=== PATIENT | male | born 1990 | race Caucasian/White ===

== ENCOUNTER 2016-08-25 13:38 | Emergency (ER) | END 2016-08-25 18:50 | disposition home or self-care (01) | CPT/HCPCS: 36415; 74176; 80053; 81003; 83690; 85025; 99284; A9270 ==

== ENCOUNTER 2016-11-24 15:10 | Emergency (ER) | payer MEDICAID ==
[2016-11-24 15:19] VITALS: BP 143/101
[2016-11-24 15:44] LABS: BILIRUBIN,URINE NEGATIVE (NEGATIVE); PH,URINE 5.5 PH (5.0-7.5)
[2016-11-24 15:46] LABS: UA w/ MICROSCOPIC CHARGE YES
[2016-11-24 15:54] LABS: UR CULTURE IF IND NOT INDICATED; WBC,URINE 0-3 /HPF (0-3)
--- NOTE | 2016-11-24 16:21 | ED Physician Documentation ---
PD HPI MALE - Stated complaint Stated Complaint: MALE - Chief complaint Chief Complaint: General - History obtained from History obtained from: Patient - History of Present Illness Timing - onset: How many days ago (5-6) Timing - duration: Days Timing - details: Gradual onset, Still present Associated symptoms: Testiclar pain (pain not as much in testicles but in posterior fourchette near base of scrotum. With tenderness and feelling of having to push some when urinating. Seen in office with normal UA and exam findings of tender prostate but also tender around the soft tissue. Concern for perirectal abscess and sent to ED for further evaluation.). No: Dysuria, Urinary frequency, Genital sore / lesion, Scrotal swelling PD HPI MALE CONTRIB FACTORS: Sexually active. No: Exposed to STD Similar symptoms before: Has not had sx before Recently seen: Clinic (today and referred to ED) Review of Systems Constitutional: denies: Fever, Chills, Myalgias GI: denies: Abdominal Pain, Vomiting, Diarrhea : denies: Dysuria, Frequency, Hematuria, Discharge Skin: denies: Rash, Lesions PD PAST MEDICAL HISTORY - Past Medical History Musculoskeletal: Chronic back pain, Other - Past Surgical History Past Surgical History: No - Present Medications Home Medications: Ambulatory Orders Medication Instructions Recorded Confirmed Amoxicillin/Potassium Clav 1 each PO Q12H #20 tablet 08/25/16 [Augmentin 875-125 Tablet] Metformin HCl 850 mg PO DAILY #15 tablet 08/25/16 Doxycycline Hyclate 100 mg PO BID #14 tablet 11/24/16 Hydrocodone/Acetaminophen [[place] 1 each PO Q6H PRN #20 tablet 11/24/16 5-325 Tablet] Naproxen [Naprosyn] 500 mg PO BID #20 tablet 11/24/16 - Allergies Allergies/Adverse Reactions: Allergies Allergy/AdvReac Type Severity Reaction Status Date / Time No Known Drug Allergies Allergy Verified 08/25/16 14:08 - Social History Does the pt smoke?: Yes Does the pt drink ETOH?: No Does the pt have substance abuse?: No - Immunizations Immunizations are current?: No Immunizations: TDAP >10years/unknown PD ED PE NORMAL - Vitals Vital signs reviewed: Yes - General General: Alert and oriented X 3, Well developed/nourished - Neck Neck: Supple, no meningeal sign, No adenopathy - Cardiac Cardiac: RRR, No murmur - Respiratory Respiratory: Clear bilaterally - Abdomen Abdomen: Soft, Non tender - Male Male : Other (normal genitalia. Testes not tender. Posterior to base of scrotum is some tender without firmness nor swelling. No redness. Bedside U/S showed no apparent abscess. Some look at prostate appeared symmetric at 2 cm though just skin probe. Testes with normal appearance and good blood flow. ) - Rectal Rectal: Deferred - Back Back: No CVA TTP - Derm Derm: Normal color, Warm and dry Results - Vitals Vitals: Vital Signs - 24 hr 11/24/16 15:16 Temperature 36.4 C L Heart Rate 101 H Respiratory 14 Rate Blood Pressure 143/101 H O2 Saturation 98 Oxygen O2 Source Room air - Labs Labs: Laboratory Tests 11/24/16 15:29 Urine Color YELLOW Urine Clarity HAZY Urine pH 5.5 Ur Specific [place] 1.020 Urine Protein NEGATIVE Urine Glucose (UA) >=1000 H Urine Ketones TRACE Urine Occult Blood NEGATIVE Urine Nitrite NEGATIVE Urine Bilirubin NEGATIVE Urine Urobilinogen 0.2 (NORMAL) Ur Leukocyte Esterase NEGATIVE Urine RBC 0-5 Urine WBC 0-3 Ur Squamous Epith Cells MOD Squamous H Urine Bacteria Rare Urine Yeast PRESENT Ur Microscopic Review INDICATED Urine Culture Comments NOT INDICATED PD MEDICAL DECISION MAKING - ED course Complexity details: reviewed results (bedside U/S showing normal testicle size with blood flow, prostate appears slightly enlarged but symmetric at about 2 cm. No perirectal abscess seen. ), considered differential (presume prostatitis. No signs of abscess on U/S. UA is normal. ), d/w patient Departure - Departure Disposition: 01 Home, Self Care Clinical Impression: Prostatitis, acute Condition: Stable Record reviewed to determine appropriate education?: Yes Instructions: ED Prostatitis Follow-Up: Dexter Leblanc PA-C [Primary Care Provider] - Prescriptions: Doxycycline Hyclate 100 mg PO BID #14 tablet Naproxen [Naprosyn] 500 mg PO BID #20 tablet Hydrocodone/Acetaminophen [[place] 5-325 Tablet] 1 each PO Q6H PRN #20 tablet PRN Reason: Pain Comments: Naproxen anti-inflammatory twice daily for 7-10 days. Add Tylenol or hydrocodone as needed for pain. Doxycycline antibiotic for presumed infection of the prostate. Recheck if not improving over the next 4-5 days. Follow up PCP in about 7-10 days. Discharge Date/Time: 11/24/16 17:19
[2016-11-24] MEDS ORDERED: HYDROcod/ACETAM 5/325 MG TABLET ONE (16:47)
[2016-11-24] MEDS ORDERED: DOXYCYCLINE 100 MG TABLET PO ONE (16:48)
[2016-11-24] MEDS ORDERED: IBUPROFEN 600 MG TABLET PO ONE (16:48)
[2016-11-24] MEDS: IBUPROFEN 600 MG TABLET PO STA (16:50)
[2016-11-24] MEDS: HYDROcod/ACETAM 5/325 MG TABLET PO STA (16:50)
[2016-11-24] MEDS: DOXYCYCLINE 100 MG TABLET PO STA (16:50)
[2016-11-27 12:34] LABS: C.TRACHOMATIS BY TMA Negative; N.GONORRHOEAE BY TMA Negative
== END 2016-11-24 17:19 | disposition home or self-care (01) ==
LOC: ED 15:10
DX: N41.0 Acute prostatitis (principal); F17.200 Nicotine dependence, unspecified, uncomplicated
CPT/HCPCS: 81001; 81003; 87086; 87491; 87591; 99283

== ENCOUNTER 2017-01-06 08:00 | Outpatient (CLI) | payer MEDICAID | END 2017-01-06 08:01 | LOC: LAB.R 08:00 | PROVIDERS: ATTEND Physician Assistant | DX: A49.01 Methicillin susceptible Staphylococcus aureus infection, unspecified site (principal) | CPT/HCPCS: 87070; 87077; 87205 ==